=== PATIENT | male | born 1950 | race Caucasian/White ===

== ENCOUNTER 2017-05-09 06:39 | Day surgery (SDC) | payer MEDICARE ==
[2017-05-08 13:04] VITALS: BMI 33.9
[2017-05-09] MEDS ORDERED: Lactated Ringer's 500 ML IV SCH (08:00)
[2017-05-09] MEDS ORDERED: Propofol 10 mg/ml Inj (20 ML) ONE (08:02)
[2017-05-09] MEDS ORDERED: Lactated Ringer's 1,000 ML IV ONE (08:06)
[2017-05-09 08:53] VITALS: TEMP 98
[2017-05-09 09:29] VITALS: O2SAT 98
[2017-05-09 11:20] VITALS: BP 123/78; PULSE 62; RESP 14
== END 2017-05-09 09:50 | disposition home or self-care (01) ==
LOC: C.ENDO 06:39
PROVIDERS: ATTEND Internal Medicine Gastroenterology
DX: Z12.11 Encounter for screening for malignant neoplasm of colon (principal); K62.1 Rectal polyp; K62.5 Hemorrhage of anus and rectum; K57.30 Diverticulosis of large intestine without perforation or abscess without bleeding; K64.0 First degree hemorrhoids
CPT/HCPCS: 45380; 82948; 88305; J2704; J3010; J7120

== ENCOUNTER 2017-07-09 13:08 | Observation (INO) | payer MEDICARE ==
[2017-07-09 13:08] VITALS: BMI 33.9
[2017-07-09 14:09] LABS: BASO # 0.1 K/uL (0.0-0.2); BASO % 1.3 % (0.0-2.0); EOS # 0.7 K/uL (0.0-0.7); EOS % 6.5 % (0.0-4.0); HEMOGLOBIN 13.2 g/dL (12.0-18.0); LYMPH # 3.9 K/uL (1.0-4.3); LYMPH % 37.6 % (20.0-40.0); MEAN CELL VOLUME 86.6 fL (80.0-94.0); MEAN CORPUSCULAR HEMOGLOBIN 29.7 pg (27.0-31.0); MEAN CORPUSCULAR HGB CONC 34.2 g/dL (33.0-37.0); MEAN PLATELET VOLUME 8.2 fL (7.2-11.7); MONO # 0.9 K/uL (0.0-0.8); MONO % 8.5 % (0.0-10.0); NEUT # 4.8 K/uL (1.8-7.0); NEUT % 46.1 % (50.0-75.0); NRBC % 0.1 % (0.0-2.0); RBC 4.46 Mil/uL (4.40-5.90); RED CELL DISTRIBUTION WIDTH 14.1 % (11.5-14.5); WHITE BLOOD COUNT 10.3 K/uL (4.8-10.8)
[2017-07-09 14:18] LABS: INR 1.1
[2017-07-09 14:20] LABS: ALBUMIN 4.3 g/dL (3.5-5.0); ALT/SGPT 39 U/L (21-72); AST/SGOT 42 U/L (17-59); BLOOD UREA NITROGEN 16 mg/dL (9-20); CALCIUM 8.8 mg/dl (8.6-10.4); GFR AFRICAN-AMERICAN > 60; GFR NON-AFRICAN AMERICAN > 60; LIPASE 102 U/L (23-300)
--- NOTE | 2017-07-09 14:55 | C.PDOC ---
History Of Present Illness 67 y/o male presents to the ER complaining of a large quantity of bright red blood per rectum which occurred today. Patient states that he had similar episode of rectal bleeding in the past. He was seen by a GI who told him he had "holes in his intestines." He notes that he called his PMD, Dr. Moreira, today and advised him to visit the ER. Upon arrival, patient denies having abdominal pain, nausea, and vomiting. Time Seen by Provider: 07/09/17 13:30 Chief Complaint (Nursing): GI Problem History Per: Patient History/Exam Limitations: no limitations Onset/Duration Of Symptoms: Hrs Current Symptoms Are (Timing): Still Present Associated Symptoms: denies: Nausea, Vomiting Past Medical History Reviewed: Historical Data, Nursing Documentation, Vital Signs Vital Signs: Last Vital Signs Temp 97.4 F L 07/09/17 17:26 Pulse 71 07/09/17 17:26 Resp 20 07/09/17 17:26 BP 158/76 H 07/09/17 17:26 Pulse Ox 98 07/09/17 17:26 - Medical History PMH: Anxiety, Depression, Gastritis, HTN, Hypercholesterolemia Denies: Chronic Kidney Disease, Sleep Apnea, TIA Surgical History: Denies: Endoscopy Family History: States: No Known Family Hx - Social History Hx Alcohol Use: No Hx Substance Use: No - Immunization History Hx Tetanus Toxoid Vaccination: Yes Hx Influenza Vaccination: Yes Hx Pneumococcal Vaccination: Yes Review Of Systems Except As Marked, All Systems Reviewed And Found Negative. Gastrointestinal: Positive for: Other (blood in stool) Physical Exam - Physical Exam Appears: Non-toxic, No Acute Distress Skin: Normal Color, Warm Head: Atraumatic, Normacephalic Eye(s): bilateral: Normal Inspection Nose: Normal Oral Mucosa: Moist Neck: Supple Chest: Symmetrical Cardiovascular: Rhythm Regular Respiratory: Normal Breath Sounds, No Rales, No Rhonchi, No Wheezing Gastrointestinal/Abdominal: Normal Exam, Soft, No Tenderness Rectal: Rectal Tone (normal rectal tone), Heme Negative, Other (no stool) Neurological/Psych: Oriented x3, Normal Speech ED Course And Treatment - Laboratory Results Result Diagrams: 07/09/17 14:02 07/09/17 14:02 O2 Sat by Pulse Oximetry: 98 (RA) Pulse Ox Interpretation: Normal Medical Decision Making Medical Decision Making: Assessment: GI Bleed Updates: Case has been discussed with patient's PMD, Dr. Moreira. Patient has diagnosed with GI bleed and admitted to OBS. Dr. Kincaid, GI, is on consult. Disposition Discussed With Dr.: Leon Moreira Doctor Will See Patient In The: Hospital Counseled Patient/Family Regarding: Studies Performed, Diagnosis - Disposition Disposition: HOSPITALIZED Disposition Time: 14:55 Condition: STABLE - Clinical Impression Clinical Impression: GI bleed - Scribe Statement The provider has reviewed the documentation as recorded by the Angi Downs Provider Attestation: All medical record entries made by the Angi were at my direction and personally dictated by me. I have reviewed the chart and agree that the record accurately reflects my personal performance of the history, physical exam, medical decision making, and the department course for this patient. I have also personally directed, reviewed, and agree with the discharge instructions and disposition.
--- NOTE | 2017-07-09 16:38 | CP.PCM.CON ---
History of Present Illness - History of Present Illness History of Present Illness: CC: Rectal bleed HPI: 67 year old man known to me, developed large amount of bright red rectal bleeding this morning, 1 episode, called me and I advised ER evaluation. Patient seen and found to have normal Hgb and no further bleeding, and admitted for observation. Colonoscopy Apr 2017 showed Diverticulosis. He takes Baby ASA daily but is not aware of anticoagulant use. Denies abdominal pain or weakness, dizziness, dyspnea. Denies diarrhea, recent antibiotic use. Review of Systems - Constitutional Constitutional: absent: Chills, Fever - EENT Eyes: absent: Change in Vision - Cardiovascular Cardiovascular: absent: Chest Pain - Respiratory Respiratory: absent: Dyspnea - Gastrointestinal Gastrointestinal: Hematochezia. absent: Abdominal Pain, Melena - Musculoskeletal Musculoskeletal: absent: Back Pain Past Patient History - Past Medical History & Family History Past Medical History?: Yes - Past Social History Smoking Status: Never Smoked Alcohol: None - CARDIAC Hx Hypercholesterolemia: Yes Hx Hypertension: Yes - PULMONARY Hx Sleep Apnea: No - NEUROLOGICAL Hx Transient Ischemic Attacks (TIA): No - HEENT Hx HEENT Problems: No - RENAL Hx Chronic Kidney Disease: No - ENDOCRINE/METABOLIC Hx Endocrine Disorders: Yes Hx Diabetes Mellitus Type 2: Yes - HEMATOLOGICAL/ONCOLOGICAL Hx Blood Disorders: No - INTEGUMENTARY Hx Dermatological Problems: No - MUSCULOSKELETAL/RHEUMATOLOGICAL Hx Musculoskeletal Disorders: No - GASTROINTESTINAL Hx Gastritis: Yes - GENITOURINARY/GYNECOLOGICAL Hx Genitourinary Disorders: No - PSYCHIATRIC Hx Anxiety: Yes Hx Depression: Yes Hx Substance Use: No - SURGICAL HISTORY Hx Surgeries: Yes Other/Comment: colonoscopy - ANESTHESIA Hx Anesthesia: Yes Hx Anesthesia Reactions: No Hx Malignant Hyperthermia: No Meds Allergies/Adverse Reactions: Allergies Allergy/AdvReac Type Severity Reaction Status Date / Time No Known Allergies Allergy Verified 05/08/17 13:04 Physical Exam - Constitutional Appears: Well, No Acute Distress - Head Exam Head Exam: ATRAUMATIC, NORMOCEPHALIC - Eye Exam Eye Exam: absent: Scleral icterus - Neck Exam Neck exam: Positive for: Normal Inspection - Respiratory Exam Respiratory Exam: Clear to Auscultation Bilateral - Cardiovascular Exam Cardiovascular Exam: REGULAR RHYTHM - GI/Abdominal Exam GI & Abdominal Exam: Soft. absent: Distended, Mass, Tenderness - Rectal Exam Rectal Exam: Deferred Additional comments: Discussed with Dr Miller in ER- his DARREN revealed no stool, no blood, no masses Results - Vital Signs Recent Vital Signs: Last Vital Signs Temp 98.2 F 07/09/17 15:47 Pulse 75 07/09/17 15:47 Resp 18 07/09/17 15:47 BP 123/64 07/09/17 15:47 Pulse Ox 97 07/09/17 15:47 - Labs Result Diagrams: 07/09/17 14:02 07/09/17 14:02 Labs: Laboratory Results - last 24 hr 07/09/17 07/09/17 07/09/17 14:02 14:02 14:02 WBC 10.3 RBC 4.46 Hgb 13.2 Hct 38.7 MCV 86.6 MCH 29.7 MCHC 34.2 RDW 14.1 Plt Count 302 MPV 8.2 Neut % (Auto) 46.1 L Lymph % (Auto) 37.6 [place] % (Auto) 8.5 Eos % (Auto) 6.5 H Baso % (Auto) 1.3 Neut # (Auto) 4.8 Lymph # (Auto) 3.9 [place] # (Auto) 0.9 H Eos # (Auto) 0.7 Baso # (Auto) 0.1 PT 12.0 INR 1.1 APTT 30 Sodium 141 Potassium 4.2 Chloride 107 Carbon Dioxide 21 L Anion Gap 18 BUN 16 Creatinine 0.9 Est GFR ( Amer) > 60 Est GFR (Non-Af Amer) > 60 Random Glucose 96 Calcium 8.8 Total Bilirubin 0.4 AST 42 ALT 39 Alkaline Phosphatase 62 Total Protein 8.5 H Albumin 4.3 Globulin 4.3 H Albumin/Globulin Ratio 1.0 Lipase 102 Blood Type Antibody Screen 07/09/17 14:02 WBC RBC Hgb Hct MCV MCH MCHC RDW Plt Count MPV Neut % (Auto) Lymph % (Auto) [place] % (Auto) Eos % (Auto) Baso % (Auto) Neut # (Auto) Lymph # (Auto) [place] # (Auto) Eos # (Auto) Baso # (Auto) PT INR APTT Sodium Potassium Chloride Carbon Dioxide Anion Gap BUN Creatinine Est GFR ( Amer) Est GFR (Non-Af Amer) Random Glucose Calcium Total Bilirubin AST ALT Alkaline Phosphatase Total Protein Albumin Globulin Albumin/Globulin Ratio Lipase Blood Type A POSITIVE Antibody Screen Negative Assessment & Plan (1) GI bleed Assessment and Plan: 1 episode of lower GI bleeding, likely from known colonic diverticulosis. This can bleed unpredicatably, and Admission for observation is therefore appropriate. Less likely would be ischemic colitis. Check CT scan Clear liquids. monitor for bleeding Status: Acute
[2017-07-09] MEDS ORDERED: Iohexol 240 (50 ml) ONE (16:51)
[2017-07-09 17:28] VITALS: RESP 20
--- NOTE | 2017-07-09 18:45 | CT ---
PROCEDURE: CT Abdomen and Pelvis with contrast HISTORY: Diverticulosis, GI bleed COMPARISON: 08/25/2014 abdominal ultrasound TECHNIQUE: Oral contrast only. Radiation dose: Total exam DLP = 1144.0 mGy-cm. This CT exam was performed using one or more of the following dose reduction techniques: Automated exposure control, adjustment of the mA and/or kV according to patient size, and/or use of iterative reconstruction technique. FINDINGS: LOWER THORAX: Unremarkable. LIVER: Hepatic steatosis. No focal masses. No intrahepatic bile duct dilatation or perihepatic ascites. GALLBLADDER AND BILE DUCTS: Unremarkable. PANCREAS: Unremarkable. No gross lesion or ductal dilatation. SPLEEN: Unremarkable. ADRENALS: Unremarkable. No mass. KIDNEYS AND URETERS: Unremarkable. No hydronephrosis. No solid mass. VASCULATURE: Unremarkable. No aortic aneurysm. BOWEL: Diverticulosis without an acute inflammatory component or other associated pathologic process. APPENDIX: Normal appendix. PERITONEUM: Unremarkable. No free fluid. No free air. LYMPH NODES: Unremarkable. No enlarged lymph nodes. BLADDER: Unremarkable. REPRODUCTIVE: Unremarkable. BONES: No acute fracture. OTHER FINDINGS: None. IMPRESSION: No acute findings related to/accounting for the clinical presentation. Additional benign and/or incidental findings described above.
[2017-07-09] MEDS: Dextrose 5%/0.45% NS 1,000 ML IV SCH (19:41)
[2017-07-10 07:27] LABS: HEMOGLOBIN 12.8 g/dL (12.0-18.0); MEAN CELL VOLUME 86.9 fL (80.0-94.0); MEAN CORPUSCULAR HEMOGLOBIN 29.1 pg (27.0-31.0); MEAN CORPUSCULAR HGB CONC 33.5 g/dL (33.0-37.0); MEAN PLATELET VOLUME 8.2 fL (7.2-11.7); RBC 4.39 Mil/uL (4.40-5.90); RED CELL DISTRIBUTION WIDTH 14.4 % (11.5-14.5); WHITE BLOOD COUNT 8.9 K/uL (4.8-10.8)
[2017-07-10 08:06] VITALS: PULSE 69; TEMP 98; O2SAT 97
[2017-07-10 08:15] LABS: ALBUMIN 3.9 g/dL (3.5-5.0); ALT/SGPT 37 U/L (21-72); AST/SGOT 55 U/L (17-59); BLOOD UREA NITROGEN 11 mg/dL (9-20); CALCIUM 8.6 mg/dl (8.6-10.4); GFR AFRICAN-AMERICAN > 60; GFR NON-AFRICAN AMERICAN > 60
[2017-07-10] MEDS: Dextrose 5%/0.45% NS 1,000 ML IV SCH (09:09)
[2017-07-10] MEDS ORDERED: Oxycodone/Acetaminophen 5/325 mg Tab PO STA (09:18)
--- NOTE | 2017-07-10 09:22 | CP.PCM.HP ---
History of Present Illness - History of Present Illness History of Present Illness: CC: red blood on stool 67y/o male wioth no past medical problem. patient had 1 episode of red stool. He went to eR and was place on observation. since yesterday, no more bowel movement of red blood on stool. Present on Admission - Present on Admission Any Indicators Present on Admission: Yes History of DVT/PE: No History of Uncontrolled Diabetes: No Urinary Catheter: No Decubitus Ulcer Present: No Review of Systems - Review of Systems Systems not reviewed;Unavailable: Acuity of Condition - Constitutional Constitutional: absent: Anorexia, Chills, Frequent Falls, Night Sweats - EENT Eyes: absent: Change in Vision, Loss of Peripheral Vision, Sees Flashes Ears: absent: Decreased Hearing, Ear Discharge, Disequilibrium Nose/Mouth/Throat: absent: Nasal Congestion, Bleeding Gums, Dysphagia - Cardiovascular Cardiovascular: absent: Claudication, Leg Edema, Palpitations, Pedal Edema - Respiratory Respiratory: absent: Dyspnea on Exertion, Snoring, Chest Congestion - Gastrointestinal Gastrointestinal: Hematochezia. absent: Diarrhea, Dysphagia, Fecal Incontinence , Hematemesis, Loose Stools, Melena - Genitourinary Genitourinary: absent: Difficulty Urinating, Urinary Urgency, Hx Renal/Bladder Calculi - Musculoskeletal Musculoskeletal: Tingling. absent: Atrophy, Muscle Cramps, Muscle Weakness, Myalgias, Neck Pain, Stiffness Past Patient History - Infectious Disease Hx of Infectious Diseases: None - Past Medical History & Family History Past Medical History?: Yes - Past Social History Smoking Status: Never Smoked Alcohol: None - CARDIAC Hx Hypercholesterolemia: Yes Hx Hypertension: Yes - PULMONARY Hx Sleep Apnea: No - NEUROLOGICAL Hx Transient Ischemic Attacks (TIA): No - HEENT Hx HEENT Problems: No - RENAL Hx Chronic Kidney Disease: No - ENDOCRINE/METABOLIC Hx Endocrine Disorders: Yes Hx Diabetes Mellitus Type 2: Yes - HEMATOLOGICAL/ONCOLOGICAL Hx Blood Disorders: No - INTEGUMENTARY Hx Dermatological Problems: No - MUSCULOSKELETAL/RHEUMATOLOGICAL Hx Musculoskeletal Disorders: No - GASTROINTESTINAL Hx Gastritis: Yes - GENITOURINARY/GYNECOLOGICAL Hx Genitourinary Disorders: No - PSYCHIATRIC Hx Anxiety: Yes Hx Depression: Yes Hx Substance Use: No - SURGICAL HISTORY Hx Surgeries: Yes Other/Comment: colonoscopy - ANESTHESIA Hx Anesthesia: Yes Hx Anesthesia Reactions: No Hx Malignant Hyperthermia: No Meds Allergies/Adverse Reactions: Allergies Allergy/AdvReac Type Severity Reaction Status Date / Time shellfish derived Allergy Verified 07/09/17 16:57 Physical Exam - Constitutional Appears: Well - Eye Exam Eye Exam: Normal appearance - ENT Exam ENT Exam: Mucous Membranes Moist - Neck Exam Neck exam: Positive for: Full Rom. Negative for: Lymphadenopathy, Normal Inspection - Respiratory Exam Respiratory Exam: Clear to Auscultation Bilateral. absent: Rales, Rhonchi, Wheezes, Respiratory Distress - Cardiovascular Exam Cardiovascular Exam: REGULAR RHYTHM, +S1, +S2. absent: Gallop, JVD, Systolic Murmur - GI/Abdominal Exam GI & Abdominal Exam: Normal Bowel Sounds, Soft. absent: Guarding, Mass, Tenderness - Extremities Exam Extremities exam: Positive for: full ROM, normal capillary refill, pedal pulses present. Negative for: calf tenderness, joint swelling Results - Vital Signs Recent Vital Signs: Last Vital Signs Temp 98.0 F 07/10/17 07:20 Pulse 69 07/10/17 07:20 Resp 20 07/10/17 07:20 BP 134/70 07/10/17 07:20 Pulse Ox 97 07/10/17 07:20 - Labs Result Diagrams: 07/10/17 07:21 07/10/17 07:21 Labs: Laboratory Results - last 24 hr 07/09/17 07/09/17 07/09/17 14:02 14:02 14:02 WBC 10.3 RBC 4.46 Hgb 13.2 Hct 38.7 MCV 86.6 MCH 29.7 MCHC 34.2 RDW 14.1 Plt Count 302 MPV 8.2 Neut % (Auto) 46.1 L Lymph % (Auto) 37.6 [place] % (Auto) 8.5 Eos % (Auto) 6.5 H Baso % (Auto) 1.3 Neut # (Auto) 4.8 Lymph # (Auto) 3.9 [place] # (Auto) 0.9 H Eos # (Auto) 0.7 Baso # (Auto) 0.1 PT 12.0 INR 1.1 APTT 30 Sodium 141 Potassium 4.2 Chloride 107 Carbon Dioxide 21 L Anion Gap 18 BUN 16 Creatinine 0.9 Est GFR ( Amer) > 60 Est GFR (Non-Af Amer) > 60 Random Glucose 96 Calcium 8.8 Total Bilirubin 0.4 AST 42 ALT 39 Alkaline Phosphatase 62 Total Protein 8.5 H Albumin 4.3 Globulin 4.3 H Albumin/Globulin Ratio 1.0 Lipase 102 Blood Type Antibody Screen 07/09/17 07/10/17 07/10/17 14:02 07:21 07:21 WBC 8.9 RBC 4.39 L Hgb 12.8 Hct 38.2 MCV 86.9 MCH 29.1 MCHC 33.5 RDW 14.4 Plt Count 301 MPV 8.2 Neut % (Auto) Lymph % (Auto) [place] % (Auto) Eos % (Auto) Baso % (Auto) Neut # (Auto) Lymph # (Auto) [place] # (Auto) Eos # (Auto) Baso # (Auto) PT INR APTT Sodium 141 Potassium 4.2 Chloride 106 Carbon Dioxide 22 Anion Gap 17 BUN 11 Creatinine 0.9 Est GFR ( Amer) > 60 Est GFR (Non-Af Amer) > 60 Random Glucose 162 H Calcium 8.6 Total Bilirubin 0.4 AST 55 ALT 37 Alkaline Phosphatase 63 Total Protein 7.7 Albumin 3.9 Globulin 3.9 Albumin/Globulin Ratio 1.0 Lipase Blood Type A POSITIVE Antibody Screen Negative - EKG Data EKG comments: Not done Assessment & Plan - Assessment and Plan (Free Text) Assessment: Hematochezia x 1 ; known diverticulosis HTN, Migraine Advise stop NSAID/ ASA cont med for discharge
[2017-07-10] MEDS ORDERED: Pantoprazole 40 mg EC Tab PO SCH (10:00)
[2017-07-10 11:12] VITALS: BP 130/82
--- NOTE | 2017-07-10 13:34 | CP.PCM.PN ---
Subjective - Date & Time of Evaluation Date of Evaluation: 07/10/17 Time of Evaluation: 12:25 - Subjective Subjective: F/u for RB. Pt reports no RB. Denies CP, SOB, fever, chills, abdom pain, melena, TERAN, cough Objective - Vital Signs/Intake and Output Vital Signs (last 24 hours): Temp Pulse Resp BP Pulse Ox 98.0 F 69 20 130/82 97 07/10/17 07:20 07/10/17 07:20 07/10/17 07:20 07/10/17 11:12 07/10/17 07:20 Intake and Output: 07/10/17 07/10/17 06:59 18:59 Intake Total 375 Output Total 600 Balance 375 -600 - Medications Medications: Current Medications Clonazepam (Klonopin) 1 mg PO DAILY [facility] Last Admin: 07/10/17 09:09 Dose: 1 mg Dextrose/Sodium Chloride (Dextrose 5%/0.45% Ns 1000 Ml) 1,000 mls @ 75 mls/hr IV .[id number] [facility] Last Admin: 07/10/17 09:09 Dose: 75 mls/hr Pantoprazole Sodium (Protonix Ec Tab) 40 mg PO DAILY [facility] Last Admin: 07/10/17 09:09 Dose: 40 mg Paroxetine HCl (Paxil) 30 mg PO DAILY [facility] Last Admin: 07/10/17 09:09 Dose: 30 mg - Labs Labs: 07/10/17 07:21 07/10/17 07:21 PT 12.0 SECONDS (9.7-12.2) 07/09/17 14:02 INR 1.1 07/09/17 14:02 APTT 30 SECONDS (21-34) 07/09/17 14:02 - Constitutional Appears: Well - Neck Exam Neck Exam: absent: Tenderness - Respiratory Exam Respiratory Exam: Clear to Ausculation Bilateral - Cardiovascular Exam Cardiovascular Exam: RRR - GI/Abdominal Exam GI & Abdominal Exam: Soft, Normal Bowel Sounds. absent: Guarding, Tenderness, Mass, Rebound - Extremities Exam Extremities Exam: absent: Pedal Edema - Neurological Exam Neurological Exam: Alert, Oriented x3 Assessment and Plan (1) Diverticulosis Status: Acute (2) GI bleed Assessment & Plan: RB= monical[place] diverticulosis. CT- neg - no colitis. Colonosocpy done recently REC- advance diet, GI stable. F/u office. Status: Acute (3) Diabetes mellitus Status: Acute (4) HTN (hypertension) Status: Acute
== END 2017-07-10 14:34 | disposition home or self-care (01) ==
LOC: C.ER 13:08 → C.9E 14:53 → C.5S 16:51
PROVIDERS: ADMIT Internal Medicine; ATTEND Internal Medicine
DX: K57.91 Diverticulosis of intestine, part unspecified, without perforation or abscess with bleeding (principal); E11.9 Type 2 diabetes mellitus without complications; G43.909 Migraine, unspecified, not intractable, without status migrainosus; I10 Essential (primary) hypertension; Z79.4 Long term (current) use of insulin
CPT/HCPCS: 36415; 74176; 80053; 83690; 85025; 85027; 85610; 85730; 86850; 86900; 96374; 99284; C9113; G0378; J7042